=== PATIENT | male | born 1985 | race African-American/Black ===

== ENCOUNTER 2017-08-21 18:02 | Emergency (ER) | payer SELFPAY ==
[~2017-08-21] VITALS: Wt 121.8 kg
== END 2017-08-21 23:29 | disposition left against medical advice (07) ==
LOC: FTE 18:02
DX: Z53.21 Procedure and treatment not carried out due to patient leaving prior to being seen by health care provider (principal)

== ENCOUNTER 2017-08-22 01:12 | Emergency (ER) | payer SELFPAY ==
[~2017-08-22] VITALS: Ht 195.6 cm; Wt 123.0 kg
[2017-08-22 01:20] VITALS: Ht 195.6 cm; Wt 123.0 kg
== END 2017-08-22 01:43 | disposition left against medical advice (07) ==
LOC: FTE 01:12
DX: Z53.21 Procedure and treatment not carried out due to patient leaving prior to being seen by health care provider (principal)